=== PATIENT | male | born 1980 | race Two or more races ===

== ENCOUNTER → 2020-03-01 | Outpatient (CLI) | payer BC ==
--- NOTE | 2020-03-01 18:06 | RAD ---
EXAM: Bilateral knees, 3 views; left shoulder, 3 views. HISTORY: Fall. Pain. COMPARISON: None. FINDINGS: Bilateral knees: 3 views of both knees are obtained. There is no fracture, dislocation or subluxation . There is no joint effusion. Left shoulder: 3 views of the left shoulder obtained. There is no fracture, dislocation or subluxatio n. IMPRESSION: No acute osseous finding. Electronically signed by: Karen Machado MD (03/01/2020 6:04 PM) [facility]
--- NOTE | 2020-03-01 18:06 | RAD ---
EXAM: Bilateral knees, 3 views; left shoulder, 3 views. HISTORY: Fall. Pain. COMPARISON: None. FINDINGS: Bilateral knees: 3 views of both knees are obtained. There is no fracture, dislocation or subluxation . There is no joint effusion. Left shoulder: 3 views of the left shoulder obtained. There is no fracture, dislocation or subluxatio n. IMPRESSION: No acute osseous finding. Electronically signed by: Karen Machado MD (03/01/2020 6:04 PM) [facility]
== END ==
LOC: RAD 16:53
PROVIDERS: ATTEND Nurse Practitioner Family
DX: M25.561 Pain in right knee (principal); M25.562 Pain in left knee; M25.512 Pain in left shoulder
CPT/HCPCS: 73030; 73562